=== PATIENT | male | born 1960 | race Caucasian/White ===

== ENCOUNTER 2022-12-07 15:57 | Emergency (ER) | payer OTHER, SELFPAY ==
[2022-12-07 16:11] VITALS: BP 132/92; PULSE 76; RESP 18; O2SAT 100
[2022-12-07] MEDS: HYDROcodone/acetaminophen (*CRX) 7.5-325 MG TABLET 1 TAB PO (16:25)
--- NOTE | 2022-12-07 16:25 | ED.BURNSMOKE ---
HPI - Burn/Smoke Inhalation General Chief complaint: Burn/Smoke Inhalation Stated complaint: burn Time Seen by Provider: 12/07/22 16:16 History of Present Illness HPI Narrative: 61-year-old male here for evaluation of a burn to his right forearm sustained 30 minutes prior to arrival. Patient states that he was working with a radiator when the steam burned a local area of his forearm. Did not take any medicine prior to arrival. No smoke inhalation, dyspnea, wheezing or vocal changes. He has run his hand under cold water without relief. Related Data Allergies Allergy/AdvReac Type Severity Reaction Status Date / Time No Known Allergies Allergy Verified 12/07/22 16:40 Review of Systems Review of Systems: Gen: Denies fevers or chills Eyes: Denies eye pain or visual change ENT: Denies congestion Respiratory: Denies shortness of breath or cough CV: Denies chest pain or palpitations GI: Denies abdominal pain nausea, emesis or diarrhea denies burning, urgency, frequency or hematuria Musculoskeletal: Denies back pain or muscle pain Neuro: Denies numbness, tingling, weakness or focal weakness Skin: Reports burn to right forearm Except as documented, all other systems reviewed and negative Exam Narrative: APPEARANCE: Uncomfortable appearing, pacing around the room, agitated Head: Normocephalic and atraumatic. EYES: PERRLA/EOMI, conjunctivae clear NOSE: no soot noted in nose EARS: External ear normal in appearance THROAT: posterior oropharynx is clear. Oropharynx is clear. Mucous membranes are moist. NECK: Supple. No adenopathy, no masses. RESPIRATORY: Airway patent, respirations nonlabored. Clear to auscultation bilaterally, no rales, rhonchi, wheezing. CARDIOVASCULAR: Regular rate and rhythm without murmurs, rubs, or gallops. ABDOMINAL: Normoactive bowel sounds. Soft, nontender, nondistended. No rebound tenderness or guarding. MUSCULOSKELETAL: Extremities are warm and well-perfused. Moves all extremities well. No edema. NEURO: Normal speech. No focal neurologic deficits. SKIN: Patient has a superficial area of erythema to his right forearm covering about 1.5% of his body surface area with a 3 x 2 cm area of skin sloughing to the lateral distal forearm, no circumferential partial thickness burn noted. no blisters noted elsewhere PSYCHIATRIC: Normal affect/mood. Course Vital Signs Vital signs: Vital Signs Pulse Rate 76 12/07/22 16:11 Respiratory Rate 18 12/07/22 16:11 Blood Pressure 132/92 H 12/07/22 16:11 Pulse Oximetry 100 12/07/22 16:11 Oxygen Delivery Room Air 12/07/22 16:11 Pulse Rate 76 12/07/22 16:11 Respiratory Rate 18 12/07/22 16:11 Blood Pressure 132/92 H 12/07/22 16:11 Pulse Oximetry 100 12/07/22 16:11 Oxygen Delivery Room Air 12/07/22 16:11 MDM - Burn/Smoke Inhalation MDM Narrative Medical decision making narrative: 61-year-old male here for evaluation of a focal superficial burn to his right forearm covering about 3 % BSA with a small area of skin sloughing consistent with partial thickness burn (< 1% BSA- not circumferential) sustained from radiator steam earlier today. No evidence of inhalation injury; no soot in nose or mouth, hoarse voice, stridor or wheezing. Patient is pacing around the room, uncooperative, verbally aggressive towards me and RN. He was given numerous pain meds in the ED including narcotics and is demanding more medicine for his pain. Explained to patient that we will not realistically be able to get his pain down to a 0, and until he can see the burn specialist he will need to take ibuprofen and Tylenol. Patient continually ripping off his dressings and rubbing the area of redness. His tetanus was updated, the wound was cleansed and dressed to the best of our ability given that he is not compliant and aggressive, encouraged him to push fluids at home. return precautions were discussed and he voiced understanding. Bacitracin was sent to the pharmacy.
[2022-12-07] MEDS: KETOROLAC 30 MG/ML VIAL (*BKC) IM (16:39)
[2022-12-07] MEDS: SODIUM CHLORIDE 0.9% IV 1,000 ML 999 ML IV CONT (16:45)
[2022-12-07] MEDS: MORPHINE SULFATE (*CRX) 2 MG/ML INJ IV PUSH (17:33)
== END 2022-12-07 17:47 | disposition home or self-care (01) ==
PROVIDERS: Emergency Provider Physician Assistant
DX: T22.211A Burn of second degree of right forearm, initial encounter (principal); T31.0 Burns involving less than 10% of body surface; X13.1XXA Other contact with steam and other hot vapors, initial encounter
CPT/HCPCS: 96361; 96372; 96374; 99284; A9270; J1885; J2270; J7030